=== PATIENT | male | born 1980 | race Caucasian/White ===

== ENCOUNTER → 2023-06-28 | Emergency (ER) | payer OTHER ==
[~2023-06-28] MED LIST: CYCLOBENZAPRINE 10 MG TAB ONE; IBUPROFEN 200 MG TAB PO ONE; IBUPROFEN 400 MG TAB ONE
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
[2023-06-28 10:19] VITALS: BP 142/103; TEMP 98; O2SAT 96
== END ==
LOC: ER 07:27
DX: M54.50 Low back pain, unspecified (principal); V49.49XA Driver injured in collision with other motor vehicles in traffic accident, initial encounter; F17.220 Nicotine dependence, chewing tobacco, uncomplicated
CPT/HCPCS: 72100; 99284